=== PATIENT | male | born 1940 | race Caucasian/White ===

== ENCOUNTER 2020-12-04 11:53 | Emergency (ER) | payer MEDICARE, OTHER ==
[~2020-12-04] VITALS: Ht 154.9 cm; Wt 97.3 kg
[2020-12-04 15:13] LABS: BASOPHILS % (AUTO) 0.5 % (0-1); EOSINOPHILS % (AUTO) 0.4 % (0-6); HEMATOCRIT 44.1 % (42.0-52.0); HEMOGLOBIN 14.5 g/dl (14.0-17.9); LYMPHOCYTES % (AUTO) 13.9 % (21-51); MEAN CORPUSCULAR HEMOGLOBIN 29.6 PG (27.0-31.0); MEAN CORPUSCULAR HGB CONC 32.9 g/dL (33.0-36.5); MEAN CORPUSCULAR VOLUME 90.2 FL (78-98); MONOCYTES # (AUTO) 0.6 X10'3 (0-0.9); MONOCYTES % (AUTO) 7.7 % (2-12); NEUTROPHILS # (AUTO) 5.5 X10'3 (1.8-7.7); NEUTROPHILS % (AUTO) 77.5 % (42-75); PLATELET COUNT 307 X10'3 (140-440); RED CELL DISTRIBUTION WIDTH 13.5 % (11.5-14.5); WHITE BLOOD COUNT 7.1 X10'3 (4.5-11.0)
[2020-12-04 15:26] LABS: ALANINE AMINOTRANSFERASE 21 U/L (12-78); ALBUMIN 3.6 G/DL (3.4-5.0); ALKALINE PHOSPHATASE 115 IU/L (46-116); ANION GAP 7 (8-16); ASPARTATE AMINO TRANSFERASE 15 U/L (10-37); BILIRUBIN,TOTAL 0.4 MG/DL (0.1-1.0); BLOOD UREA NITROGEN 19 MG/DL (7-18); BUN/CREATININE RATIO 23.8 (5.4-32.0); CALCIUM 8.7 MG/DL (8.5-10.1); CHLORIDE 106 MMOL/L (99-107); GLUCOSE 104 MG/DL (70-104); POTASSIUM 3.8 MMOL/L (3.5-5.1); SODIUM 142 MMOL/L (135-145); TOTAL CARBON DIOXIDE 28.7 MMOL/L (24-32); TOTAL PROTEIN 7.3 G/DL (6.4-8.2); eGFR > 90 ML/MIN
[2020-12-04 16:33] VITALS: BP 147/76
== END 2020-12-04 16:35 | disposition home or self-care (01) ==
LOC: ER 11:54
DX: R60.0 Localized edema (principal)
CPT/HCPCS: 36415; 71045; 80053; 83880; 84484; 85025; 93005; 99283

== ENCOUNTER 2023-05-16 06:28 | Emergency (ER) | payer OTHER, BC ==
[~2023-05-16] VITALS: Ht 185.4 cm; Wt 91.0 kg
[2023-05-16] MEDS ORDERED: ketorolac trometh inj. 60 MG/2 ML VIAL IM ONE (08:30)
[2023-05-16] MEDS ORDERED: acetaminophen 325mg tablet PO ONE (08:30)
[2023-05-16] MEDS ORDERED: DICL20GE TOP (08:34)
[2023-05-16 09:09] VITALS: BP 132/74
== END 2023-05-16 09:12 | disposition home or self-care (01) ==
LOC: ER 06:28
DX: M25.551 Pain in right hip (principal); M54.2 Cervicalgia; I10 Essential (primary) hypertension
CPT/HCPCS: 96372; 99283; J1885